=== PATIENT | female | born 1990 | race Caucasian/White ===

== ENCOUNTER 2021-02-03 11:55 | Inpatient (IN) | payer OTHER ==
[~2021-02-03] VITALS: Ht 160 cm; Wt 81.8 kg
[2021-02-03] MEDS ORDERED: FENTANYL PF 100 MCG/2ML IVPush PRN (14:00)
[2021-02-03] MEDS ORDERED: D5%-LACTATED RINGERS 1,000 ML IV SCH (14:00)
[2021-02-03] MEDS ORDERED: PLEASE ENTER HEIGHT AND WEIGHT MC SCH (14:00)
[2021-02-03] MEDS ORDERED: OXYTOCIN 30U/ 0.9% NaCL 500ML 500 ML IV PRN ×2 (14:00)
[2021-02-03] MEDS ORDERED: LACTATED RINGERS 1,000 ML IV SCH (14:00)
[2021-02-03] MEDS ORDERED: MISOPROSTOL 25 MCG TABLET VG PRN (14:00)
[2021-02-03] MEDS ORDERED: TERBUTALINE 1 MG/ML, 1ML SQ PRN (14:00)
[2021-02-03] MEDS ORDERED: TERBUTALINE 1 MG/ML, 1ML IVPush PRN (14:00)
[2021-02-03] MEDS ORDERED: OXYTOCIN 30U/ 0.9% NaCL 500ML 500 ML IV ONE (14:00)
[2021-02-03] MEDS ORDERED: ONDANSETRON 2MG/ML, 2ML IVPush PRN (14:00)
[2021-02-03] MEDS ORDERED: FENTANYL PF 100 MCG/2ML IV PRN (14:00)
[2021-02-03] MEDS ORDERED: MISOPROSTOL 25 MCG TABLET ONE (14:15)
[2021-02-03] MEDS ORDERED: LIDOCAINE 1%, 20ML ONE (14:15)
[2021-02-03] MEDS ORDERED: MISOPROSTOL 200 MCG TABLET ONE (14:15)
[2021-02-03] MEDS ORDERED: NEWBORN KIT ONE (14:15)
[2021-02-03] MEDS ORDERED: OXYTOCIN 30U/ 0.9% NaCL 500ML 500 ML ONE (14:16)
[2021-02-03 14:22] LABS: BASOPHILS % (AUTO) 1 % (0-1); EOSINOPHILS % (AUTO) 1 % (1-7); LYMPHOCYTES % (AUTO) 29 % (22-44); MEAN CORPUSCULAR HEMOGLOBIN 25.9 pg (27.0-34.8); MEAN CORPUSCULAR HGB CONC 32.8 g/dL (32.4-35.8); MEAN PLATELET VOLUME 9.7 fL (7.4-10.4); MONOCYTES % (AUTO) 8 % (2-9); NEUTROPHILS % (AUTO) 62 % (42-75); PLATELET COUNT 270 x10^3/uL (130-400); RED BLOOD COUNT 4.76 x10^6/uL (3.82-5.3); RED CELL DISTRIBUTION WIDTH 14.3 % (9.6-15.2)
[2021-02-03] MEDS ORDERED: PLEASE ENTER ALLERGIES MC SCH (14:30)
[2021-02-03] MEDS ORDERED: MISOPROSTOL 25 MCG TABLET PO PRN (20:00)
[2021-02-03] MEDS ORDERED: SODIUM CITRATE/CITRIC ACID 15 ML UDC ONE (21:29)
[2021-02-04 05:28] LABS: BASOPHILS % (AUTO) 1 % (0-1); EOSINOPHILS % (AUTO) 1 % (1-7); LYMPHOCYTES % (AUTO) 31 % (22-44); MEAN CORPUSCULAR HEMOGLOBIN 25.6 pg (27.0-34.8); MEAN CORPUSCULAR HGB CONC 32.6 g/dL (32.4-35.8); MEAN PLATELET VOLUME 9.8 fL (7.4-10.4); MONOCYTES % (AUTO) 8 % (2-9); NEUTROPHILS % (AUTO) 59 % (42-75); PLATELET COUNT 248 x10^3/uL (130-400); RED BLOOD COUNT 4.74 x10^6/uL (3.82-5.3); RED CELL DISTRIBUTION WIDTH 13.9 % (9.6-15.2)
[2021-02-04 05:33] LABS: ALBUMIN 2.3 g/dL (3.4-5.0); ANION GAP 10 mmol/L (5-15); CALCIUM 8.7 mg/dL (8.5-10.1); CHLORIDE 107 mmol/L (98-107)
[2021-02-04 05:37] LABS: ALANINE AMINOTRANSFERASE 13 U/L (12-78); ALKALINE PHOSPHATASE 289 U/L (45-117); BILIRUBIN,TOTAL 0.3 mg/dL (0.2-1.0); CREATININE 0.72 mg/dL (0.55-1.02); TOTAL PROTEIN 6.5 g/dL (6.4-8.2)
[2021-02-04 05:38] LABS: BILIRUBIN, DIRECT < 0.1 mg/dL (0.1-0.2)
[2021-02-04] MEDS ORDERED: FENTANYL/BUPIV./NS/PF 250 ML EPIDCONT ONE (08:36)
[2021-02-04] MEDS ORDERED: NALOXONE 0.4 MG/ML, 1ML IVPush PRN (09:30)
[2021-02-04] MEDS ORDERED: EPHEDRINE 50 MG/ML, 1ML IVPush PRN (09:30)
[2021-02-04] MEDS ORDERED: LACTATED RINGERS 1,000 ML IVBOLUS PRN (09:30)
[2021-02-04] MEDS ORDERED: LACTATED RINGERS 1,000 ML IV SCH (09:30)
[2021-02-04] MEDS ORDERED: FENTANYL/BUPIV./NS/PF 250 ML EPIDCONT SCH (09:30)
[2021-02-04 09:38] LABS: MICROSCOPIC NOT IND
[2021-02-04] MEDS ORDERED: LACTATED RINGERS 1,000 ML IVBOLUS ONE (18:30)
[2021-02-04] MEDS ORDERED: AZITHROMYCIN 500 MG in SODIUM CHLORIDE 0.9% 250 ML IV ONE (18:30)
[2021-02-04] MEDS ORDERED: SODIUM CITRATE/CITRIC ACID 30 ML UDC PO ONE (18:30)
[2021-02-04] MEDS ORDERED: METOCLOPRAMIDE 5 MG/ML, 2ML IV ONE (18:30)
[2021-02-04] MEDS ORDERED: LIDOCAINE-MPF 2% ,5ML ONE (18:47)
[2021-02-04] MEDS ORDERED: CEFAZOLIN 1,000 MG ONE (18:47)
[2021-02-04] MEDS ORDERED: EPHEDRINE 50 MG/ML, 1ML ONE (18:47)
[2021-02-04] MEDS ORDERED: morphine SULFATE 10 MG/ML, 1ML IVPush PRN ×2 (19:00→20:30)
[2021-02-04] MEDS ORDERED: MISOPROSTOL 200 MCG TABLET PR PRN (19:00)
[2021-02-04] MEDS ORDERED: DIPH,PERTUSS(ACELL),TET VAC/PF NC IM-VACC PRN (19:00)
[2021-02-04] MEDS ORDERED: ACETAMINOPHEN 325 MG TABLET PO PRN ×2 (19:00)
[2021-02-04] MEDS: LACTATED RINGERS 1,000 ML IV SCH ×2 (19:00→20:43)
[2021-02-04] MEDS ORDERED: ONDANSETRON 2MG/ML, 2ML IV PRN (19:00)
[2021-02-04] MEDS ORDERED: CARBOPROST TROMETHAMINE 250 MCG/ML, 1ML IM PRN (19:00)
[2021-02-04] MEDS ORDERED: morphine SULFATE 10 MG/ML, 1ML IM PRN (19:00)
[2021-02-04] MEDS ORDERED: OXYTOCIN 10 UNITS/ML, 1ML ONE (19:21)
[2021-02-04] MEDS ORDERED: FENTANYL PF 100 MCG/2ML ONE (19:25)
[2021-02-04] MEDS ORDERED: OXYcodone 5 MG/5 ML ORAL.SOL UDC PO PRN (20:30)
[2021-02-04] MEDS ORDERED: FENTANYL PF 100 MCG/2ML IV PRN (20:30)
[2021-02-04] MEDS: OXYTOCIN 30U/ 0.9% NaCL 500ML 500 ML IV SCH (20:47)
[2021-02-04 22:40] VITALS: BP 152/87
[2021-02-05] MEDS: KETOROLAC 30 MG/1 ML IV SCH ×5 (01:00→21:57)
[2021-02-05 02:00] VITALS: BP 131/78
[2021-02-05] MEDS: LACTATED RINGERS 1,000 ML IV SCH ×4 (03:00→19:00)
[2021-02-05] MEDS: OXYcodone IR 5MG TABLET PO PRN ×2 (03:38→08:42)
[2021-02-05 04:31] LABS: BASOPHILS % (AUTO) 0 % (0-1); EOSINOPHILS % (AUTO) 0 % (1-7); LYMPHOCYTES % (AUTO) 14 % (22-44); MEAN CORPUSCULAR HGB CONC 33.1 g/dL (32.4-35.8); MEAN PLATELET VOLUME 9.3 fL (7.4-10.4); MONOCYTES % (AUTO) 6 % (2-9); NEUTROPHILS % (AUTO) 79 % (42-75); PLATELET COUNT 188 x10^3/uL (130-400); RED BLOOD COUNT 3.93 x10^6/uL (3.82-5.3); RED CELL DISTRIBUTION WIDTH 14.1 % (9.6-15.2)
[2021-02-05 04:50] VITALS: BP 127/83
[2021-02-05] MEDS: OXYTOCIN 30U/ 0.9% NaCL 500ML 500 ML IV SCH ×2 (05:00→15:00)
[2021-02-05 07:30] VITALS: BP 129/82
[2021-02-05] MEDS: SIMETHICONE 80 MG CHEW TAB PO PRN ×2 (08:42→20:09)
[2021-02-05] MEDS: PRENATAL VIT/IRON/FA 1 EACH TABLET PO SCH (09:00)
[2021-02-05 12:47] VITALS: BP 121/86
[2021-02-05] MEDS: OXYcodone/APAP 5/325MG TABLET PO PRN ×2 (15:54→20:08)
[2021-02-05 20:00] VITALS: BP 139/96
[2021-02-05] MEDS: DOCUSATE 100 MG CAPSULE PO PRN (20:07)
[2021-02-06 00:10] VITALS: BP 119/77
[2021-02-06] MEDS: OXYTOCIN 30U/ 0.9% NaCL 500ML 500 ML IV SCH ×2 (01:00→11:00)
[2021-02-06] MEDS: LACTATED RINGERS 1,000 ML IV SCH ×2 (03:00→11:00)
[2021-02-06] MEDS: KETOROLAC 30 MG/1 ML IV SCH ×3 (03:49→15:30)
[2021-02-06] MEDS: OXYcodone/APAP 5/325MG TABLET PO PRN ×3 (04:03→16:36)
[2021-02-06] MEDS: SIMETHICONE 80 MG CHEW TAB PO PRN (04:07)
[2021-02-06 08:05] VITALS: BP 105/61
[2021-02-06] MEDS: PRENATAL VIT/IRON/FA 1 EACH TABLET PO SCH (08:10)
[2021-02-06] MEDS: DOCUSATE 100 MG CAPSULE PO PRN (08:10)
[2021-02-06] MEDS ORDERED: IBUPROFEN 600 MG TABLET PO PRN ×2 (16:00→19:00)
== END 2021-02-06 17:00 | disposition home or self-care (01) | DRG 788 ==
LOC: LDOP 11:55 → LDIP 13:43 → 2NW 02-04 22:05
PROVIDERS: ADMIT Obstetrics & Gynecology Maternal & Fetal Medicine; ATTEND Obstetrics & Gynecology Maternal & Fetal Medicine
PROC: 10D00Z1 Extraction of Products of Conception, Low, Open Approach (ICD-10-PCS; principal; 2021-02-04)
DX: O13.4 Gestational [pregnancy-induced] hypertension without significant proteinuria, complicating childbirth (principal); O62.0 Primary inadequate contractions; Z37.0 Single live birth; Z3A.40 40 weeks gestation of pregnancy; Z20.822 Contact with and (suspected) exposure to COVID-19
CPT/HCPCS: 36415; J3490; 80053; 81003; 82248; 82570; 84112; 84156; 84550; 85025; 86592; 86850; 86900; 87635; G0378; J0690; J1885; J3010; J2270; J2590; J7120

== ENCOUNTER 2021-02-09 05:47 | Inpatient (IN) | payer OTHER ==
[~2021-02-09] VITALS: Ht 162.6 cm; Wt 75.1 kg
[2021-02-09] MEDS ORDERED: LORazepam 2 MG/ML, 1ML ONE (05:55)
[2021-02-09] MEDS ORDERED: LORazepam 2 MG/ML, 1ML IVPush ONE (06:00)
[2021-02-09] MEDS ORDERED: PLEASE ENTER ALLERGIES MC SCH (06:00)
[2021-02-09] MEDS ORDERED: SODIUM CHLORIDE FLUSH 10ML SYR IVF ONE (06:00)
[2021-02-09] MEDS ORDERED: SODIUM CHLORIDE 0.9% 1,000ML IVBOLUS ONE (06:00)
--- NOTE | 2021-02-09 06:00 | NUR ---
INITIAL PT CONTACT. PT PRESENTS TO ED VIA EMS C/O POSSIBLE SEIZURE VS SYNCOPE, NO PRIOR HX. PT HAD , 5 DAYS AGO. PT NOW ALTERED AT THIS TIME, RESPONDS TO SOME VERBAL COMMANDS, NOT ANSWERING QUESTIONS AT THIS TIME ONLY MOANING. SOME MINOR ORAL TRAUMA NOTED. PER AT BEDSIDE, PT GOT UP TO GO TO THE BATHROOM, HE HEARD A LOUD "BANG" AND HE CAME INTO THE BATHROOM AND FOUND HER "SHAKING ON THE GROUND WITH HER JAW CLENCHED", LASTED APPROX 30 SECONDS. PT REPORTS WORSENING HEADACHE AND LIGHT-HEADEDNESS OVER THE PAST 4 DAYS. PT MOVED FROM [facility] TO ED [facility], PLACED ON CONTINUOUS MONITORING. CALL LIGHT AND PERSONAL BELONGINGS WITHIN REACH. ERP AT BEDSIDE.
[2021-02-09] MEDS ORDERED: OMNIPAQUE 350 MG/ML, 100ML BOTTLE ONE (06:32)
[2021-02-09 06:40] LABS: BASOPHILS % (AUTO) 1 % (0-1); EOSINOPHILS % (AUTO) 3 % (1-7); LYMPHOCYTES % (AUTO) 21 % (22-44); MEAN CORPUSCULAR HEMOGLOBIN 26.4 pg (27.0-34.8); MEAN CORPUSCULAR HGB CONC 33.3 g/dL (32.4-35.8); MEAN PLATELET VOLUME 8.1 fL (7.4-10.4); MONOCYTES % (AUTO) 6 % (2-9); NEUTROPHILS % (AUTO) 70 % (42-75); PLATELET COUNT 268 x10^3/uL (130-400); RED CELL DISTRIBUTION WIDTH 14.4 % (9.6-15.2)
[2021-02-09 06:51] LABS: ALANINE AMINOTRANSFERASE 20 U/L (12-78); ALBUMIN 2.1 g/dL (3.4-5.0); ANION GAP 10 mmol/L (5-15); CALCIUM 7.7 mg/dL (8.5-10.1); CHLORIDE 107 mmol/L (98-107); CREATININE 0.69 mg/dL (0.55-1.02)
[2021-02-09 06:54] LABS: ALKALINE PHOSPHATASE 236 U/L (45-117); BILIRUBIN,TOTAL 0.3 mg/dL (0.2-1.0)
--- NOTE | 2021-02-09 06:59 | NUR ---
REPORT TO ADIA PONCE
--- NOTE | 2021-02-09 07:26 | NUR ---
REPORT FROM ANAYA PONCE. PT RESTING IN BED IN CARE OF S.O. HELPED TO BEDPAN, CLEANED, FRESH SHEETS. VS CHARTED, HYPERTENSIVE, DENIES HTN MEDS DURING . PT SEEMS V ANXIOUS, DROWSY. CT SHOWS SMALL SDH. LAW IN ROOM TO DISCUSS W PT AND FAM, PT TBADM. NO NEEDS AT THIS TIME. FALL/SZ PRECS.
[2021-02-09] MEDS ORDERED: MAGNESIUM SULFATE PMX 4GM/100M 100 ML IVPB ONE (07:30)
[2021-02-09] MEDS ORDERED: hydrALAzine 20 MG/ML, 1ML ONE (07:39)
[2021-02-09] MEDS ORDERED: MAGNESIUM SULFATE PMX 4GM/100M 100 ML ONE (07:39)
[2021-02-09] MEDS ORDERED: OXYC5CAP2 PO (07:52)
[2021-02-09 07:55] LABS: INTERNATIONAL NORMALIZED RATIO 0.93 (0.93-1.1); PROTHROMBIN TIME 9.7 Seconds (9.6-11.5)
--- NOTE | 2021-02-09 07:59 | NUR ---
MAG VELA. HYDRALAZINE HELD BP IMPROVED. PT V ANXIOUS, DENIES PAIN/NAUSEA. PEARRL. WREN 4/5 STRENGTH, DOES NOT WANT TO COOPERATE W ASSESSMENT. TO BEDPAN.
[2021-02-09] MEDS ORDERED: MAGNESIUM SULF. PMX 20GM/500ML 500 ML IV PRN (08:00)
[2021-02-09] MEDS ORDERED: hydrALAzine 20 MG/ML, 1ML IV ONE (08:00)
[2021-02-09 08:11] LABS: PARTIAL THROMBOPLASTIN TIME < 23 Seconds (25-31)
--- NOTE | 2021-02-09 08:32 | NUR ---
hydralazine per oct. call placed to consult re: pumping. [phone]
--- NOTE | 2021-02-09 08:35 | NUR ---
call placed to post , no consult at bedside at moment, but st they will follow up with for this pt for breast pump. as
[2021-02-09] MEDS ORDERED: ONDANSETRON 2MG/ML, 2ML IVPush PRN (09:30)
[2021-02-09] MEDS ORDERED: morphine SULFATE 10 MG/ML, 1ML IVPush PRN (09:30)
[2021-02-09] MEDS ORDERED: LABETALOL 5MG/ML, 20ML IVPush PRN ×2 (09:30→15:30)
[2021-02-09] MEDS ORDERED: DOCUSATE 100 MG CAPSULE PO PRN (09:30)
[2021-02-09] MEDS ORDERED: hydrALAzine 20 MG/ML, 1ML IVPush PRN ×2 (09:30→17:30)
[2021-02-09] MEDS ORDERED: MELATONIN 5 MG TABLET PO PRN (09:30)
[2021-02-09 10:04] LABS: MICROSCOPIC AUTO
[2021-02-09] MEDS: LEVETIRACETAM 1,000 MG in SODIUM CHLORIDE 0.9% 100 ML IV SCH ×2 (10:20→21:44)
[2021-02-09] MEDS: OXYcodone IR 5MG TABLET PO PRN ×2 (11:14→15:50)
[2021-02-09] MEDS: MAGNESIUM SULF. PMX 20GM/500ML 500 ML IV PRN ×2 (11:55→21:50)
[2021-02-09] MEDS ORDERED: LABETALOL 5MG/ML, 20ML IVPush ONE ×2 (13:00)
[2021-02-09] MEDS ORDERED: POTASSIUM CHLORIDE 20 MEQ TAB.ER.PRT PO ONE (13:30)
[2021-02-09] MEDS: niFEDipine ER 30 MG TABLET.ER PO SCH (14:39)
[2021-02-09 17:30] LABS: BASOPHILS % (AUTO) 1 % (0-1); EOSINOPHILS % (AUTO) 2 % (1-7); LYMPHOCYTES % (AUTO) 21 % (22-44); MEAN CORPUSCULAR HEMOGLOBIN 25.7 pg (27.0-34.8); MEAN CORPUSCULAR HGB CONC 32.9 g/dL (32.4-35.8); MEAN PLATELET VOLUME 7.9 fL (7.4-10.4); MONOCYTES % (AUTO) 6 % (2-9); NEUTROPHILS % (AUTO) 71 % (42-75); PLATELET COUNT 317 x10^3/uL (130-400); RED BLOOD COUNT 4.76 x10^6/uL (3.82-5.3); RED CELL DISTRIBUTION WIDTH 14.4 % (9.6-15.2)
[2021-02-09 17:41] LABS: ALANINE AMINOTRANSFERASE 26 U/L (12-78); ALBUMIN 2.5 g/dL (3.4-5.0); ANION GAP 9 mmol/L (5-15); CALCIUM 7.6 mg/dL (8.5-10.1); CHLORIDE 103 mmol/L (98-107); CREATININE 0.61 mg/dL (0.55-1.02)
[2021-02-09 17:43] LABS: ALKALINE PHOSPHATASE 273 U/L (45-117); BILIRUBIN,TOTAL 0.3 mg/dL (0.2-1.0)
[2021-02-09] MEDS: ACETAMINOPHEN 325 MG TABLET PO PRN (18:15)
[2021-02-09] MEDS: FAMOTIDINE 20 MG TABLET PO SCH (21:30)
[2021-02-09] MEDS: SODIUM CHLORIDE FLUSH 10ML SYR IVF SCH (21:30)
[2021-02-10] MEDS: ACETAMINOPHEN 325 MG TABLET PO PRN ×4 (00:21→21:10)
[2021-02-10 04:31] LABS: BASOPHILS % (AUTO) 1 % (0-1); EOSINOPHILS % (AUTO) 2 % (1-7); LYMPHOCYTES % (AUTO) 21 % (22-44); MEAN CORPUSCULAR HEMOGLOBIN 26.4 pg (27.0-34.8); MEAN CORPUSCULAR HGB CONC 33.5 g/dL (32.4-35.8); MEAN PLATELET VOLUME 7.8 fL (7.4-10.4); MONOCYTES % (AUTO) 6 % (2-9); NEUTROPHILS % (AUTO) 70 % (42-75); PLATELET COUNT 330 x10^3/uL (130-400); RED CELL DISTRIBUTION WIDTH 14.8 % (9.6-15.2)
[2021-02-10 04:40] LABS: ALANINE AMINOTRANSFERASE 29 U/L (12-78); ALBUMIN 2.5 g/dL (3.4-5.0); ANION GAP 10 mmol/L (5-15); CALCIUM 6.4 mg/dL (8.5-10.1); CHLORIDE 102 mmol/L (98-107); CREATININE 0.56 mg/dL (0.55-1.02)
[2021-02-10 04:43] LABS: ALKALINE PHOSPHATASE 262 U/L (45-117); BILIRUBIN,TOTAL 0.3 mg/dL (0.2-1.0)
[2021-02-10] MEDS ORDERED: POTASSIUM CHLORIDE 20 MEQ TAB.ER.PRT PO ONE (06:30)
[2021-02-10] MEDS ORDERED: CALCIUM GLUCONATE 9.2 MEQ in SODIUM CHLORIDE 0.9% 100 ML IV ONE (06:30)
[2021-02-10] MEDS: SODIUM CHLORIDE FLUSH 10ML SYR IVF SCH (09:00)
[2021-02-10] MEDS: niFEDipine ER 30 MG TABLET.ER PO SCH (09:00)
[2021-02-10] MEDS ORDERED: MAGNESIUM SULF. PMX 20GM/500ML 500 ML IV PRN (09:30)
[2021-02-10] MEDS: FAMOTIDINE 20 MG TABLET PO SCH ×2 (09:33→21:18)
[2021-02-10] MEDS: LEVETIRACETAM 1,000 MG in SODIUM CHLORIDE 0.9% 100 ML IV SCH (11:16)
[2021-02-10] MEDS: LACTATED RINGERS 1,000 ML IV SCH (12:39)
[2021-02-10 14:19] VITALS: BP 116/76
[2021-02-10 22:07] LABS: ALBUMIN 2.6 g/dL (3.4-5.0); ANION GAP 6 mmol/L (5-15); CALCIUM 6.9 mg/dL (8.5-10.1); CHLORIDE 104 mmol/L (98-107)
[2021-02-10 22:10] LABS: ALANINE AMINOTRANSFERASE 41 U/L (12-78); ALKALINE PHOSPHATASE 264 U/L (45-117); BILIRUBIN,TOTAL 0.3 mg/dL (0.2-1.0); CREATININE 0.71 mg/dL (0.55-1.02); TOTAL PROTEIN 7.3 g/dL (6.4-8.2)
[2021-02-11] MEDS: LEVETIRACETAM 500 MG TABLET PO SCH ×3 (00:14→21:11)
[2021-02-11] MEDS: LACTATED RINGERS 1,000 ML IV SCH (02:10)
[2021-02-11] MEDS ORDERED: MAGNESIUM SULF. PMX 20GM/500ML 500 ML IV ONE (05:07)
[2021-02-11 06:06] LABS: ALBUMIN 2.5 g/dL (3.4-5.0); ANION GAP 7 mmol/L (5-15); CALCIUM 6.9 mg/dL (8.5-10.1); CHLORIDE 105 mmol/L (98-107)
[2021-02-11 06:09] LABS: ALANINE AMINOTRANSFERASE 39 U/L (12-78); ALKALINE PHOSPHATASE 245 U/L (45-117); BILIRUBIN,TOTAL 0.3 mg/dL (0.2-1.0); CREATININE 0.61 mg/dL (0.55-1.02); TOTAL PROTEIN 6.9 g/dL (6.4-8.2)
[2021-02-11] MEDS ORDERED: CALCIUM GLUCONATE 9.2 MEQ in SODIUM CHLORIDE 0.9% 100 ML IV ONE (07:00)
[2021-02-11] MEDS: niFEDipine ER 30 MG TABLET.ER PO SCH (08:18)
[2021-02-11] MEDS: FAMOTIDINE 20 MG TABLET PO SCH (08:18)
[2021-02-11] MEDS ORDERED: MAGNESIUM SULF. PMX 20GM/500ML 500 ML IV PRN ×2 (09:30)
[2021-02-12] MEDS: ACETAMINOPHEN 325 MG TABLET PO PRN (04:54)
[2021-02-12 05:36] LABS: ALANINE AMINOTRANSFERASE 34 U/L (12-78); ALBUMIN 2.5 g/dL (3.4-5.0); ANION GAP 9 mmol/L (5-15); CALCIUM 7.8 mg/dL (8.5-10.1); CHLORIDE 109 mmol/L (98-107)
[2021-02-12 05:39] LABS: ALKALINE PHOSPHATASE 219 U/L (45-117); BILIRUBIN,TOTAL 0.3 mg/dL (0.2-1.0); CREATININE 0.68 mg/dL (0.55-1.02); TOTAL PROTEIN 6.9 g/dL (6.4-8.2)
[2021-02-12] MEDS: LEVETIRACETAM 500 MG TABLET PO SCH (09:26)
[2021-02-12] MEDS: FAMOTIDINE 20 MG TABLET PO SCH (09:27)
[2021-02-12] MEDS: niFEDipine ER 30 MG TABLET.ER PO SCH (09:27)
[2021-02-12] MEDS ORDERED: LEVE100020 PO (10:35)
[2021-02-12] MEDS ORDERED: NIFE-7 PO (10:36)
== END 2021-02-12 10:55 | disposition home or self-care (01) | DRG 776 ==
LOC: EDBD 05:47 → MERGE 05:47 → ED 07:34 → EDIP 08:38 → CCU 09:14 → LDIP 02-10 14:12
PROVIDERS: ADMIT Hospitalist; ATTEND Hospitalist
DX: O99.43 Diseases of the circulatory system complicating the puerperium (principal); S06.5X9A Traumatic subdural hemorrhage with loss of consciousness of unspecified duration, initial encounter; O15.2 Eclampsia complicating the puerperium; O99.355 Diseases of the nervous system complicating the puerperium; F05 Delirium due to known physiological condition; W18.39XA Other fall on same level, initial encounter; R56.9 Unspecified convulsions; R74.8 Abnormal levels of other serum enzymes; D64.9 Anemia, unspecified; O99.03 Anemia complicating the puerperium; D72.829 Elevated white blood cell count, unspecified; E83.51 Hypocalcemia; E87.6 Hypokalemia; O14.95 Unspecified pre-eclampsia, complicating the puerperium; O99.285 Endocrine, nutritional and metabolic diseases complicating the puerperium; O99.345 Other mental disorders complicating the puerperium; Y93.89 Activity, other specified; Y92.89 Other specified places as the place of occurrence of the external cause; Y99.8 Other external cause status
CPT/HCPCS: 36415; 70450; 70470; 71045; 71046; 80053; 81001; 83735; 84100; 84550; 85025; 85610; 85730; 86850; 86900; 87081; 87086; 93005; G0378; J0610; J1953; Q9967; 92523-GN; J0360; J2060; J2270; J3475; J7030; J7120